=== PATIENT | female | born 1945 | race Caucasian/White ===

== ENCOUNTER → 2017-02-14 | Outpatient (CLI) | payer MEDICARE ==
--- NOTE | 2017-02-14 15:37 | US ---
EXAMINATION TYPE: US transvaginal DATE OF EXAM: 02/14/2017 COMPARISON: NONE CLINICAL HISTORY: Uterine Prolapse, N81.4. Urinary frequency TECHNIQUE: Transvaginal (TV) Date of LMP: unknown EXAM MEASUREMENTS: Uterus: 8.7 x 4.3 x 4.0 cm Endometrial Stripe: 0.9 cm Right Ovary: unable to visualize Left Ovary: unable to visualize 1. Uterus: Anteverted multiple Nabothian cysts, heterogeneous in appearance with possible fibroid anterior fundus = 3.2 x 2.2 x 3.5cm 2. Endometrium: upper limits of normal 3. Right Ovary: Obscured by overlying bowel gas 4. Left Ovary: Obscured by overlying bowel gas 5. Bilateral Adnexa: appears wnl 6. Posterior cul-de-sac: wnl IMPRESSION: 1. Uterine fibroid 2. Some limitation on visualization
== END | disposition home or self-care (01) ==
LOC: RADUSWWP 14:40
PROVIDERS: ATTEND Obstetrics & Gynecology
DX: D25.9 Leiomyoma of uterus, unspecified (principal)
CPT/HCPCS: 76830

== ENCOUNTER → 2017-03-17 | Outpatient (CLI) | payer MEDICARE ==
[2017-03-17 09:54] LABS: Basophils # (A) 0.1 k/uL (0-0.2); Basophils % (A) 1 %; CH 28.7; CHCM 31.1; Eosinophils # (A) 0.2 k/uL (0-0.7); Eosinophils % (A) 2 %; HCT 44.2 % (34.0-46.0); HGB 13.8 gm/dL (11.4-16.0); Hypochromasia Slight; Luc # (Auto) 0.12; Luc % (Auto) 1; Lymphocytes # (A) 1.5 k/uL (1.0-4.8); Lymphocytes % (A) 15 %; MCH 29.1 pg (25.0-35.0); MCHC 31.4 g/dL (31.0-37.0); MCV 92.7 fL (80.0-100.0); Mean Platelet Volume 6.4; Monocytes # (A) 0.4 k/uL (0-1.0); Monocytes % (A) 5 %; Neutrophils # (A) 7.2 k/uL (1.3-7.7); Neutrophils % (A) 76 %; RBC 4.76 m/uL (3.80-5.40); RDW 14.4 % (11.5-15.5); WBC 9.4 k/uL (3.8-10.6); WBC (Perox) 9.15
[2017-03-17 10:15] LABS: Anion Gap 11 mmol/L; Blood Urea Nitrogen 16 mg/dL (7-17); Carbon Dioxide 28 mmol/L (22-30); Chloride 102 mmol/L (98-107); Glucose 107 mg/dL (74-99); Non-African American GFR(MDRD) >60 (>60 ml/min/1.73 sqM); Sodium 141 mmol/L (137-145)
[2017-03-17 10:48] LABS: Potassium 4.1 mmol/L (3.5-5.1)
== END | disposition home or self-care (01) ==
LOC: LABPAT 09:23
PROVIDERS: ATTEND Obstetrics & Gynecology
DX: Z01.812 Encounter for preprocedural laboratory examination (principal)
CPT/HCPCS: 80048; 85025; 86850; 86900; 86901

== ENCOUNTER 2017-03-27 05:54 | Inpatient (IN) | payer MEDICARE ==
[2017-03-19 08:33] VITALS: BMI 34.6
--- NOTE | 2017-03-26 19:45 | P.HPOB ---
History of Present Illness H&P Date: 03/26/17 Chief Complaint: Uterine prolapse with cystocele and rectocele This is a 72-year-old female 1 para 1 who presents for total vaginal hysterectomy with anterior and posterior vaginal colporrhaphy secondary to uterine prolapse with cystocele and rectocele. She was referred to me initially by Dr. Az Ford who did do urodynamic testing and found the patient not to have urinary stress incontinence. He did not feel that she would benefit from a sling procedure at the time of surgery. The patient complains of vaginal pressure and mass along with frequent urinary tract infections and some urinary incontinence. She denies any constipation. Pelvic ultrasound showed uterus measuring 8.7 x 4.3 x 4.0 cm with an endometrial stripe thickness of 0.9 cm. Neither ovary was visualized. There was noted to be a possible anterior fibroid measuring 3.2 x 3.5 cm. She was seen by Dr. Barcenas from cardiology and was given cardiac clearance for surgery. She was placed on Eliquis due to atrial fibrillation. This will be stopped prior to surgery and then restarted after surgery. She was also cleared by her family doctor. Obstetrical history: . History of 1 vaginal delivery. Gynecologic history: No history of sexual transmitted diseases. 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 Review of Systems Constitutional: Reports fatigue Ears: bilateral: decreased hearing Ears, nose, mouth and throat: Denies headache, Denies sore throat Cardiovascular: Denies chest pain, Denies shortness of breath Respiratory: Denies cough Gastrointestinal: Denies abdominal pain, Denies diarrhea, Denies nausea, Denies vomiting Genitourinary: Reports mixed incontinence, Reports pelvic pain, Reports urinary frequency Menstruation: Reports postmenopausal Musculoskeletal: Reports low back pain Musculoskeletal: bilateral: ankle swelling Integumentary: Denies pruritus, Denies rash Neurological: Denies numbness, Denies weakness Psychiatric: Reports insomnia, Denies anxiety, Denies depression Endocrine: Reports flushing Past Medical History Past Medical History: Atrial Fibrillation, Cancer, Diabetes Mellitus, Hypertension, Osteoarthritis (OA) Additional Past Medical History / Comment(s): hx. skin cancer, frequent urinartion, irregular heart beat, varicose veins, History of Any Multi-Drug Resistant Organisms: None Reported Past Surgical History: Appendectomy, Breast Surgery, Joint Replacement Additional Past Surgical History / Comment(s): jina cataract, skin ca removed from nose, breast biopsy, blepharoplasty, lump removed from neck, D & C, TOTAL RIGHT KNEE ARTHROPLASTY, l Past Anesthesia/Blood Transfusion Reactions: No Reported Reaction Additional Past Anesthesia/Blood Transfusion Reaction / Comment(s): unknown family hx Past Psychological History: No Psychological Hx Reported Smoking Status: Never smoker Past Alcohol Use History: None Reported Past Drug Use History: None Reported - Past Family History Mother Family Medical History: No Reported History Father Family Medical History: Myocardial Infarction (MA) Medications and Allergies Home Medications Medication Instructions Recorded Confirmed Type Hydrochlorothiazide [Hydrodiuril] 25 mg PO Q48H 09/14/14 03/19/17 History Cholecalciferol [Vitamin D3] 2,000 unit PO DAILY 05/02/15 03/19/17 History traMADol HCl [Ultram] 50 mg PO QID PRN #90 tab 05/18/15 03/19/17 Rx Apixaban [Eliquis] 5 mg PO BID 03/19/17 03/19/17 History Calcium Carbonate/Vitamin D3 1 each PO BID 03/19/17 03/19/17 History [Calcium 500-Vit D3 200 Tablet] Gabapentin [Neurontin] 800 mg PO TID 03/19/17 03/19/17 History Tolterodine ER [Detrol LA] 4 mg PO DAILY 03/19/17 03/19/17 History hydrALAZINE HCL [Apresoline] 25 mg PO BID 03/19/17 03/19/17 History metFORMIN HCL [Glucophage] 500 mg PO BID 03/19/17 03/19/17 History Allergies Allergy/AdvReac Type Severity Reaction Status Date / Time Penicillins Allergy Unknown Verified 03/19/17 08:13 Exam Osteopathic Statement: *. No significant issues noted on an osteopathic structural exam other than those noted in the History and Physical/Consult. HEENT: Within normal limits Heart: Regular rate and rhythm Lungs: Clear to auscultation bilaterally Abdomen: Soft, nontender Pelvic exam: Uterus is small, nontender, no adnexal masses are noted. She does have third-degree uterine prolapse with third-degree cystocele and second- degree rectocele. Extremities show negative Homans. Assessment and Plan (1) Cystocele with uterine prolapse Status: Acute (2) Rectocele Status: Acute Plan: Proceed with total vaginal hysterectomy with anterior and posterior vaginal colporrhaphy. I have discussed the risks, benefits, and alternative therapies for the above- mentioned procedure and for both sedation/anesthesia as well as necessary blood products administration, if indicated, as they pertain to this patient. The patient has indicated her understanding and acceptance of the risks and procedures discussed.
[~2017-03-27 05:54] MED LIST: ceFAZolin 2 GM in SODIUM CHLORIDE 0.9% 100 ML IVPB ONE
[2017-03-27] MEDS ORDERED: ONDANSETRON 4 MG/2 ML VIAL IVP ONE (05:56)
[2017-03-27] MEDS ORDERED: DEXAMETHASONE SOD PHOSPHATE 10 MG/ML 1 ML VIAL IV ONE (05:56)
[2017-03-27] MEDS ORDERED: HYDROmorphone 0.5 MG/0.5 ML SYRINGE IVP PRN (05:56)
[2017-03-27] MEDS: LACTATED RINGERS 1,000 ML IV SCH ×3 (06:31→16:37)
[2017-03-27 06:38] LABS: Glucose,Whole Blood 103 mg/dL (75-99)
[2017-03-27 07:25] LABS: INR 1.1 (<1.2); Prothrombin Time 11.4 sec (9.0-12.0)
[2017-03-27] MEDS ORDERED: ePHEDrine SULFATE/0.9% NACL/PF 50 MG/5 ML SYRINGE IV ONE (07:40)
[2017-03-27] MEDS ORDERED: MORPHINE SULFATE (PF) 0.3 MG/0.3 ML SYR ONE (07:40)
[2017-03-27] MEDS ORDERED: MIDAZOLAM 2 MG/2 ML VIAL ONE (07:40)
[2017-03-27] MEDS ORDERED: fentaNYL (PF) 50 MCG/ML 2 ML AMP ONE (07:40)
[2017-03-27] MEDS ORDERED: BACITRACIN 500 UNIT/GM OINT 28.4 GM TUBE TOPICAL ONE (08:04)
[2017-03-27] MEDS ORDERED: EPINEPHrine 1 MG/ML 1 ML AMP IV ONE (08:05)
[2017-03-27] MEDS ORDERED: ZOLPIDEM 5 MG TAB PO PRN (09:37)
[2017-03-27] MEDS ORDERED: Acetaminophen-Codeine 300-30mg TAB PO PRN ×2 (09:37)
[2017-03-27] MEDS ORDERED: KETOROLAC 30 MG/ML 1 ML VIAL IVP PRN (09:37)
[2017-03-27] MEDS ORDERED: IBUPROFEN 600 MG TAB PO PRN (09:37)
[2017-03-27] MEDS ORDERED: ONDANSETRON 4 MG/2 ML VIAL IVP PRN (09:37)
[2017-03-27] MEDS ORDERED: SIMETHICONE 80 MG CHEWABLE PO PRN (09:37)
[2017-03-27] MEDS ORDERED: diphenhydrAMINE 50 MG/ML 1 ML VIAL IVP PRN (09:37)
[2017-03-27] MEDS ORDERED: METOCLOPRAMIDE 5 MG/ML 2 ML VIAL IVP PRN (09:37)
[2017-03-27 09:58] LABS: Glucose,Whole Blood 131 mg/dL (75-99)
[2017-03-27] MEDS ORDERED: HYDROCHLOROTHIAZIDE 25 MG TAB PO SCH (10:00)
--- NOTE | 2017-03-27 10:18 | P.OP ---
Date of Procedure: 03/27/17 Preoperative Diagnosis: Uterine prolapse with cystocele and rectocele Postoperative Diagnosis: Same Procedure(s) Performed: Total vaginal hysterectomy with anterior and posterior vaginal colporrhaphy Anesthesia: spinal (Duramorph) Surgeon: Jennifer Bryan Estimated Blood Loss (ml): 40 Pathology: other (Uterus with cervix) Condition: stable Disposition: floor Indications for Procedure: This is a 72-year-old female 1 para 1 who presents for total vaginal hysterectomy with anterior and posterior vaginal colporrhaphy secondary to uterine prolapse with cystocele and rectocele. She was referred to me initially by Dr. Az Ford who did do urodynamic testing and found the patient not to have urinary stress incontinence. He did not feel that she would benefit from a sling procedure at the time of surgery. The patient complains of vaginal pressure and mass along with frequent urinary tract infections and some urinary incontinence. She denies any constipation. Pelvic ultrasound showed uterus measuring 8.7 x 4.3 x 4.0 cm with an endometrial stripe thickness of 0.9 cm. Neither ovary was visualized. There was noted to be a possible anterior fibroid measuring 3.2 x 3.5 cm. She was seen by Dr. Barcenas from cardiology and was given cardiac clearance for surgery. She was placed on Eliquis due to atrial fibrillation. This will be stopped prior to surgery and then restarted after surgery. She was also cleared by her family doctor. Operative Findings: Grade 3 uterine prolapse and cystocele were noted. Approximately grade 2 rectocele was noted. Both tubes and ovaries were visualized and appeared normal. Description of Procedure: The patient is taken the operating room where she is placed in the dorsal lithotomy position. She is prepped and draped in the normal sterile fashion. Next a weighted speculum was placed in the patient's vagina and a right angle retractor was used to visualize the cervix. The anterior lip of the cervix is grasped with a single-tooth tenaculum. Next the cervix was circumferentially injected with one amp of epinephrine to 150 mL of normal saline. Next the cervix was circumscribed with a scalpel. The vaginal mucosa was pushed away from the cervix with a sponge. Next the uterosacral ligaments are clamped on either side with a Elder clamp, cut with Howard scissors, and then sutured with 0 Vicryl suture in a Elder transfixion stitch and then held on either side with a straight hemostat. Next the posterior peritoneal reflection was identified and entered sharply with Howard scissors. The edges of the vaginal mucosa was then tagged with 0 Vicryl suture and held with a curved hemostat for identification. Next a longbilled weighted speculum was placed through the posterior peritoneal reflection. Next the cardinal ligaments were clamped on either side with Elder clamps, cut with Howard scissors, and then sutured with 0 Vicryl suture in Elder transfixion stitches and cut. Next the vesicouterine peritoneum reflection is identified and entered sharply with Metzenbaum scissors. A right angle bladder retractor is then used to retract the bladder. The uterine arteries are clamped on either side with Elder clamps, cut with Howard scissors, and then sutured with 0 Vicryl suture in Elder transfixion stitches. The round ligament is also clamped on either side with a Elder clamp , cut with Howard scissors, and sutured with 0 Vicryl suture in Elder transfixion stitches. Next the uterine ovarian ligament and tube were clamped on either side with a Elder clamp, cut with Howard scissors, and then sutured with 0 Vicryl suture in a [id number] stitch, flashed, and then free tied with another suture of 0 Vicryl suture. These pedicles were held with a straight Mishel for identification. Both tubes and ovaries were visualized and appeared normal. The uterus is removed from the field. Excellent hemostasis is noted. Next the peritoneum is closed with 0 Vicryl suture in a pursestring fashion incorporating all the held ligaments. Next the uterine ovarian ligaments are tied together in the middle and cut. Next attention was turned to the cystocele repair. The edges of the vaginal mucosa are held with 2 Allis clamps. Next injection of the same epinephrine solution is injected underneath the mucosa upwards towards the urethra. Metzenbaum scissors were used to dissect underneath the vaginal mucosa and cut along the way up to just below the urethra. Sharp and blunt dissection are used to dissect the bladder away from the vaginal mucosa. Once the bladder is freed, the cystocele is reduced with 0 Vicryl suture in [id number] stitches on either side of the cystocele. Next the edges of the vaginal mucosa are trimmed with Metzenbaum scissors. Next the vaginal mucosa is sutured with 0 Vicryl suture in a running locked fashion incorporating the vaginal cuff. Excellent hemostasis is noted. The Beyer catheter is inserted and clear urine is noted. Next attention is turned to the posterior repair. 2 Allis clamps are used to grasp the introitus at the 4 and 8 o'clock position. Next the same epinephrine solution is injected underneath the vaginal mucosa upwards towards the cuff. Next a scalpel was used to excise a triangular piece of tissue between the 2 Allis clamps and onto the perineum. Next Metzenbaum scissors are used to dissect underneath the vaginal mucosa upwards towards the vaginal cuff. The edges of the vaginal mucosa are held with Allis clamps. The vaginal mucosa was dissected away from the rectocele with sharp and blunt dissection. Once the rectocele was freed, the rectocele was reduced with 0 Vicryl suture in interrupted [id number] stitches on either side of the rectocele. Once it is reduced, the edges of the vaginal mucosa are trimmed. The vaginal mucosa is then sutured with 0 Vicryl suture in a running locked fashion up to the introitus and then brought underneath the tissue and whipstitched in a running fashion up to the apex of the perineum. Next is brought underneath the tissue in a subcuticular fashion and then tied at the introitus. Excellent hemostasis is noted. Next the vagina is packed with one-inch iodoform gauze with bacitracin ointment. All sponge and needle counts are correct and the patient is then taken to recovery room in stable condition.
[2017-03-27] MEDS: SENNOSIDES-DOCUSATE SODIUM 1 EACH TAB PO SCH ×2 (11:26→20:22)
[2017-03-27] MEDS: hydrALAZINE HCL 25 MG TAB PO SCH ×2 (11:26→20:20)
[2017-03-27] MEDS: metFORMIN 500 MG TAB PO SCH ×2 (11:26→20:19)
[2017-03-27] MEDS: GABAPENTIN 400 MG CAP PO SCH ×4 (11:27→21:08)
[2017-03-28] MEDS: LACTATED RINGERS 1,000 ML IV SCH (01:56)
[2017-03-28 07:07] LABS: Basophils # (A) 0.1 k/uL (0-0.2); Basophils % (A) 0 %; CH 29.3; CHCM 31.6; Eosinophils # (A) 0.1 k/uL (0-0.7); Eosinophils % (A) 0 %; HCT 38.3 % (34.0-46.0); HDW 2.26; HGB 11.7 gm/dL (11.4-16.0); Luc # (Auto) 0.18; Luc % (Auto) 1; Lymphocytes # (A) 2.1 k/uL (1.0-4.8); Lymphocytes % (A) 11 %; MCH 28.6 pg (25.0-35.0); MCHC 30.6 g/dL (31.0-37.0); MCV 93.4 fL (80.0-100.0); Mean Platelet Volume 7.2; Monocytes % (A) 6 %; Neutrophils # (A) 15.6 k/uL (1.3-7.7); Neutrophils % (A) 82 %; WBC (Perox) 19.24
[2017-03-28] MEDS ORDERED: ACETAMINOPHEN TAB 325 MG TAB PO PRN (07:44)
[2017-03-28] MEDS ORDERED: APIXABAN 5 MG TAB PO SCH (09:00)
[2017-03-28] MEDS: metFORMIN 500 MG TAB PO SCH (09:24)
[2017-03-28] MEDS: GABAPENTIN 400 MG CAP PO SCH ×2 (09:24→16:26)
[2017-03-28] MEDS: SENNOSIDES-DOCUSATE SODIUM 1 EACH TAB PO SCH (09:25)
[2017-03-28] MEDS: hydrALAZINE HCL 25 MG TAB PO SCH (09:28)
--- NOTE | 2017-03-28 13:08 | P.DS ---
Providers Date of admission: 03/27/17 05:54 Expected date of discharge: 03/28/17 Attending physician: Jennifer Bryan Primary care physician: Ludin Le - Discharge Diagnosis(es) (1) Cystocele with uterine prolapse Current Visit: Yes Status: Acute (2) Rectocele Current Visit: Yes Status: Acute Hospital Course: This is a 72-year-old female who underwent a total vaginal hysterectomy with anterior and posterior vaginal colporrhaphy on 03/27/2017. She has been ambulating without difficulty. She is only taking Tylenol for pain. She is urinating good amounts without difficulty. She is still having some vaginal bleeding with a few small clots. She was passing some flatus this morning but hasn't so far the rest of the day. She is eating a regular diet. She is having some right lower abdominal pain and states "it feels like I need to poop ". Vital signs are stable. Abdomen is soft with positive bowel sounds 4, active. Leyla-pad shows very scant serosanguineous discharge. Extremities show negative Homans. Impression is status post total vaginal hysterectomy with anterior and posterior vaginal colporrhaphy postoperative day #1. Plan is to hopefully discharge home later this evening after she is able to have a bowel movement. She may hold discharge until tomorrow morning if she is still having difficulty with her bowel movements. She plans to use just [id number] Tylenol for pain as needed. She is advised follow-up in the office in 1-2 weeks for a postoperative check and is advised to call the office if she has any further questions or concerns prior to her appointment time. Routine postoperative instructions are given. Procedures: Total vaginal hysterectomy with anterior and posterior vaginal colporrhaphy on 03/27/2017 Patient Condition at Discharge: Stable Plan - Discharge Summary New Discharge Prescriptions: New Acetaminophen Tab [Tylenol] 650 mg PO Q6HR PRN tab PRN Reason: Fever And/Or Mild Pain Continue Hydrochlorothiazide [Hydrodiuril] 25 mg PO Q48H Cholecalciferol [Vitamin D3] 2,000 unit PO DAILY traMADol HCl [Ultram] 50 mg PO QID PRN #90 tab PRN Reason: Pain Apixaban [Eliquis] 5 mg PO BID Calcium Carbonate/Vitamin D3 [Calcium 500-Vit D3 200 Tablet] 1 tab PO BID Gabapentin [Neurontin] 800 mg PO TID hydrALAZINE HCL [Apresoline] 25 mg PO BID metFORMIN HCL [Glucophage] 500 mg PO BID Discontinued Tolterodine ER [Detrol LA] 4 mg PO DAILY Discharge Medication List Hydrochlorothiazide [Hydrodiuril] 25 mg PO Q48H 09/14/14 [History] Cholecalciferol [Vitamin D3] 2,000 unit PO DAILY 05/02/15 [History] traMADol HCl [Ultram] 50 mg PO QID PRN #90 tab 05/18/15 [Rx] Apixaban [Eliquis] 5 mg PO BID 03/19/17 [History] Calcium Carbonate/Vitamin D3 [Calcium 500-Vit D3 200 Tablet] 1 tab PO BID [History] Gabapentin [Neurontin] 800 mg PO TID 03/19/17 [History] hydrALAZINE HCL [Apresoline] 25 mg PO BID 03/19/17 [History] metFORMIN HCL [Glucophage] 500 mg PO BID 03/19/17 [History] Acetaminophen Tab [Tylenol] 650 mg PO Q6HR PRN tab 03/28/17 [Rx] Follow up Appointment(s)/Referral(s): Jennifer Bryan DO [Doctor of Osteopathic Medicine] - 10 Days Activity/Diet/Wound Care/Special Instructions: Diet as tolerated. No heavy lifting. May shower, but no tub baths. No intercourse. Discharge Disposition: HOME SELF-CARE
[2017-03-28 17:31] VITALS: BP 128/67; PULSE 65; RESP 16; TEMP 98
== END 2017-03-28 19:38 | disposition home or self-care (01) | DRG 743 ==
LOC: 2ORMAIN 05:54 → 6PED 09:47
PROVIDERS: ADMIT Obstetrics & Gynecology; ATTEND Obstetrics & Gynecology
PROC: 0UT97ZZ Resection of Uterus, Via Natural or Artificial Opening (ICD-10-PCS; principal; 2017-03-27 07:30)
PROC: 0UTC7ZZ Resection of Cervix, Via Natural or Artificial Opening (ICD-10-PCS; principal; 2017-03-27 07:30)
PROC: 0JQC0ZZ Repair Pelvic Region Subcutaneous Tissue and Fascia, Open Approach (ICD-10-PCS; principal; 2017-03-27 07:30)
DX: N81.4 Uterovaginal prolapse, unspecified (principal); I48.91 Unspecified atrial fibrillation; E11.9 Type 2 diabetes mellitus without complications; I10 Essential (primary) hypertension; R32 Unspecified urinary incontinence; Z96.652 Presence of left artificial knee joint; Z79.01 Long term (current) use of anticoagulants; Z79.899 Other long term (current) drug therapy; Z85.828 Personal history of other malignant neoplasm of skin; Z87.440 Personal history of urinary (tract) infections; Z79.84 Long term (current) use of oral hypoglycemic drugs; Z88.0 Allergy status to penicillin; Z96.651 Presence of right artificial knee joint; Z82.49 Family history of ischemic heart disease and other diseases of the circulatory system
CPT/HCPCS: 85025; 85610; 85730; 86850; 86900; 86901; 88302; 88307